=== PATIENT | male | born 1935 | race Caucasian/White ===

== ENCOUNTER 2020-12-27 22:16 | Emergency (ER) | payer MEDICARE ==
[~2020-12-27] VITALS: Ht 172.7 cm; Wt 98.0 kg
[2020-12-27] MEDS ORDERED: LATANOPROST2.5 M3 (23:55)
[2020-12-27] MEDS ORDERED: MELO7.5 (23:55)
[2020-12-27] MEDS ORDERED: METFORMIN HCL500 M2 PO (23:55)
[2020-12-27] MEDS ORDERED: ATORVASTATIN CA20 MG PO (23:55)
[2020-12-28] MEDS ORDERED: Norco 5-325 Ta1 EACH PO (00:55)
[2020-12-28] MEDS ORDERED: IBUP800 PO (00:55)
== END 2020-12-28 01:16 | disposition home or self-care (01) ==
LOC: ER 22:16
DX: M25.511 Pain in right shoulder (principal); W10.9XXA Fall (on) (from) unspecified stairs and steps, initial encounter
CPT/HCPCS: 73030; 73110; 99283-25; A9270